=== PATIENT | female | born 1950 ===

== ENCOUNTER 2017-08-13 09:05 | Emergency (ER) | payer MEDICAID ==
[2017-08-13 09:06] VITALS: BMI 45.0
--- NOTE | 2017-08-13 10:02 | ED PDOC ---
HPI: General Adult Time Seen by Provider: 08/13/17 09:10 Chief Complaint (Nursing): Weakness/Neurological Deficit Chief Complaint (Provider): Weakness/Neurological Deficit History Per: Patient, Family History/Exam Limitations: no limitations Onset/Duration Of Symptoms: Days (x2) Current Symptoms Are (Timing): Still Present Additional Complaint(s): 67 year old female with medical history of hypercholesterolemia, presents to the emergency department with a complaint of right-sided facial weakness associated with 3 episodes of vomiting, nausea and blurry vision ongoing since last night. Patient was recently treated for bronchitis and left ear infection with Augmentin, Ciprodex and Prednisone. Denied any skin rash, fever or numbness of the upper/lower extremities. Patient noted vomiting and blurry vision resolved upon arrival to ED. PMD: Sol Frederick MD Past Medical History Reviewed: Historical Data, Nursing Documentation, Vital Signs Vital Signs: Last Vital Signs Temp 98.4 F 08/13/17 12:59 Pulse 66 08/13/17 12:59 Resp 18 08/13/17 12:59 BP 125/75 08/13/17 12:59 Pulse Ox 99 08/13/17 12:59 - Medical History PMH: Arthritis, Hypercholesterolemia, Chronic Kidney Disease - Surgical History Surgical History: Cholecystectomy - Family History Family History: States: Unknown Family Hx - Social History Current smoker - smoking cessation education provided: No Ex-Smoker (has not smoked in the last 12 months): No Alcohol: None Drugs: Denies - Home Medications Home Medications: Ambulatory Orders Medication Instructions Recorded Acetylcarnitine [Acetyl 500 mg DAILY 12/12/15 l-Carnitine] Alpha Lipoic Acid [Alpha Lipoic 200 mg DAILY 12/12/15 Acid] Bio-Curlumin 200 mg DAILY 12/12/15 Bone Meal/Vitamin D2 [Bone Meal 50,000 units PO ASDIR 12/12/15 214 mg-102 mg] Calcium Carb/Vitamin D3/Vit K1 1 tab DAILY 12/12/15 [Calcium + D Soft Chewable Tab] Ciprofloxacin [Cipro] 500 mg PO BID 12/12/15 Ibuprofen [Advil] 200 mg PO Q6 12/12/15 Magnesium Citrate 100 mg PO DAILY 12/12/15 Naproxen [Naprosyn] 500 mg DAILY 12/12/15 Omeprazole [Prilosec] 20 mg DAILY 12/12/15 Simvastatin [Zocor] 20 mg PO DAILY 12/12/15 - Allergies Allergies/Adverse Reactions: Allergies Allergy/AdvReac Type Severity Reaction Status Date / Time iodine Allergy ITCHING Verified 08/13/17 09:32 Review of Systems ROS Statement: Except As Marked, All Systems Reviewed And Found Negative Constitutional: Negative for: Fever Eyes: Positive for: Vision Change (blurry-resolved) ENT: Positive for: Ear Pain (left ear clog) Gastrointestinal: Positive for: Nausea, Vomiting (x3-resolved) Skin: Negative for: Rash Neurological: Positive for: Numbness (right-sided face) Physical Exam - Reviewed Nursing Documentation Reviewed: Yes Vital Signs Reviewed: Yes - Physical Exam Appears: Positive for: Well, Non-toxic, No Acute Distress Head Exam: Positive for: ATRAUMATIC, NORMAL INSPECTION, NORMOCEPHALIC Skin: Positive for: Normal Color, Warm, Dry Eye Exam: Positive for: Normal appearance ENT: Positive for: TM Is/Are (erythematous with fluid noted on left. Right TM is within normal limits). Negative for: Normal ENT Inspection, Other (Left TM infection/pus) Neck: Positive for: Painless ROM Cardiovascular/Chest: Positive for: Regular Rate, Rhythm, Chest Non Tender Respiratory: Positive for: Normal Breath Sounds. Negative for: Decreased Breath Sounds, Respiratory Distress Gastrointestinal/Abdominal: Positive for: Normal Exam, Soft. Negative for: Tenderness Extremity: Positive for: Normal ROM (upper/lower). Negative for: Other (upper/ lower weakess) Neurologic/Psych: Positive for: Alert, archeologist classical II-XII (intact), Oriented, Gait ( stable). Negative for: Motor/Sensory Deficits, Aphasia, Facial Droop - Laboratory Results Result Diagrams: 08/13/17 10:00 08/13/17 10:00 - ECG O2 Sat by Pulse Oximetry: 97 (RA) Pulse Ox Interpretation: Normal Medical Decision Making Medical Decision Making: Initial Impression: Right facial numbness - no other neurological findings Initial Plan: * CT head without contrast * CMP * CBC Time: 1024 --CT head FINDINGS: HEMORRHAGE: No intracranial hemorrhage. BRAIN: No mass effect or edema. No atrophy or chronic microvascular ischemic changes. VENTRICLES: Unremarkable. No hydrocephalus. CALVARIUM: Unremarkable. PARANASAL SINUSES: Unremarkable as visualized. No significant inflammatory changes. MASTOID AIR CELLS: Trace bilateral mastoid effusions. OTHER FINDINGS: None. IMPRESSION: No acute intracranial pathology. Time: 1242 --Upon provider reevaluation, patient is medically stable, feeling better with resolution of numbness and requires no further treatment in the ED at this time. labs reviewed. Provider explained thoroughly to patient's son and daughter, the importance of outpatient care with neurologist and ENT doctor. Patient will be discharged home. Counseling was provided and all questions were answered regarding diagnosis. There is agreement to discharge plan. Return if symptoms persist or worsen. pt dc home iwth family and recommended follow up in 1-2 days. Clinical Impression: Paresthesia Scribe Attestation: Documented by Lsia Landers, acting as a scribe for Stormy Stanley MD. Provider Scribe Attestation: All medical record entries made by the Scribe were at my direction and personally dictated by me. I have reviewed the chart and agree that the record accurately reflects my personal performance of the history, physical exam, medical decision making, and the department course for this patient. I have also personally directed, reviewed, and agree with the discharge instructions and disposition. Disposition - Clinical Impression Clinical Impression: History of paresthesia - Patient ED Disposition Is Patient to be Admitted: No Counseled Patient/Family Regarding: Studies Performed, Diagnosis, Need For Followup - Disposition Referrals: [facility] [Outside] [facility] [Outside] Ophelia Xiong MD [Medical Doctor] - Disposition: Routine/Home Disposition Time: 12:42 Condition: IMPROVED Additional Instructions: follow up with your primary doctor in 1-2 days as well as neurologist in 1-2 days (and with ENT as instructed) return to the ED with any worsening or concerning symptoms Instructions: Paresthesias (DC) Forms: [facility] (Guinean) Print Language: TRINIDADIAN
[2017-08-13 10:10] LABS: BASO # 0.1 K/uL (0.0-0.2); BASO % 0.9 % (0.0-2.0); EOS # 0.1 K/uL (0.0-0.7); EOS % 1.4 % (0.0-4.0); HEMOGLOBIN 11.8 g/dL (12.0-16.0); LYMPH # 2.5 K/uL (1.0-4.3); LYMPH % 33.1 % (20.0-40.0); MEAN CELL VOLUME 87.8 fl (81.0-99.0); MEAN PLATELET VOLUME 8.3 fl (7.2-11.7); MONO # 0.7 K/uL (0.0-0.8); MONO % 9.5 % (0.0-10.0); NEUT # 4.2 K/uL (1.8-7.0); NEUT % 55.1 % (50.0-75.0); RBC 4.08 Mil/uL (3.80-5.20); RED CELL DISTRIBUTION WIDTH 13.4 % (11.5-14.5); WHITE BLOOD COUNT 7.7 K/uL (4.8-10.8)
--- NOTE | 2017-08-13 10:26 | CT ---
PROCEDURE: CT HEAD WITHOUT CONTRAST. HISTORY: r sided facial numbness COMPARISON: None available. TECHNIQUE: Axial computed tomography images were obtained through the head/brain without intravenous contrast. Radiation dose: Total exam DLP = 844.6 mGy-cm. This CT exam was performed using one or more of the following dose reduction techniques: Automated exposure control, adjustment of the mA and/or kV according to patient size, and/or use of iterative reconstruction technique. FINDINGS: HEMORRHAGE: No intracranial hemorrhage. BRAIN: No mass effect or edema. No atrophy or chronic microvascular ischemic changes. VENTRICLES: Unremarkable. No hydrocephalus. CALVARIUM: Unremarkable. PARANASAL SINUSES: Unremarkable as visualized. No significant inflammatory changes. MASTOID AIR CELLS: Trace bilateral mastoid effusions. OTHER FINDINGS: None. IMPRESSION: No acute intracranial pathology.
[2017-08-13 10:27] LABS: ALBUMIN 3.8 g/dL (3.5-5.0); ALT/SGPT 51 U/L (9-52); AST/SGOT 33 U/L (14-36); BLOOD UREA NITROGEN 19 mg/dl (7-17); CALCIUM 9.4 mg/dL (8.4-10.2); GFR AFRICAN-AMERICAN > 60; GFR NON-AFRICAN AMERICAN > 60
[2017-08-13 12:30] VITALS: BP 125/75; PULSE 66; RESP 18
[2017-08-13 13:00] VITALS: TEMP 98.4
[2017-08-13 15:09] VITALS: O2SAT 97
== END 2017-08-13 12:59 | disposition home or self-care (01) ==
LOC: H.ER 09:05
DX: R20.2 Paresthesia of skin (principal); R53.1 Weakness; E78.00 Pure hypercholesterolemia, unspecified; R29.810 Facial weakness

== ENCOUNTER 2017-08-30 12:13 | Emergency (ER) | payer MEDICAID ==
[2017-08-30 12:13] VITALS: BMI 45.0
[2017-08-30 12:18] VITALS: RESP 20; O2SAT 98
--- NOTE | 2017-08-30 12:54 | ED PDOC ---
HPI: Abdomen Time Seen by Provider: 08/30/17 12:21 Chief Complaint (Nursing): Abdominal Pain Additional Complaint(s): 67yo F with PMHx HLD c/o abd pain. epigastric abd pain x2 days, started last night prior to bedtime, not able to fall asleep well last night 2/2 pain. pain 9 /10, pressure like, radiation at times to the back when sever, constant, a/w diarrhea x2 days with no BM today, imodium last night. Denies PMHx/FHx cardiac hx. Tolerating PO, a/w nausea. Denies fever, chills, vomiting, chest pain, SOB, dysuria. Sick contacts include 3 others with diarrhea at home. PCP Dr. Madrid Past Medical History Reviewed: Historical Data, Nursing Documentation, Vital Signs Vital Signs: Last Vital Signs Temp 97.9 F 08/30/17 12:15 Pulse 90 08/30/17 12:15 Resp 20 08/30/17 12:15 BP 147/76 08/30/17 12:15 Pulse Ox 98 08/30/17 13:54 - Medical History PMH: Arthritis, Hypercholesterolemia, Chronic Kidney Disease - Surgical History Surgical History: Cholecystectomy - Family History Family History: States: Unknown Family Hx - Home Medications Home Medications: Ambulatory Orders Medication Instructions Recorded Acetylcarnitine [Acetyl 500 mg DAILY 12/12/15 l-Carnitine] Alpha Lipoic Acid [Alpha Lipoic 200 mg DAILY 12/12/15 Acid] Bio-Curlumin 200 mg DAILY 12/12/15 Bone Meal/Vitamin D2 [Bone Meal 50,000 units PO ASDIR 12/12/15 214 mg-102 mg] Calcium Carb/Vitamin D3/Vit K1 1 tab DAILY 12/12/15 [Calcium + D Soft Chewable Tab] Ciprofloxacin [Cipro] 500 mg PO BID 12/12/15 Ibuprofen [Advil] 200 mg PO Q6 12/12/15 Magnesium Citrate 100 mg PO DAILY 12/12/15 Naproxen [Naprosyn] 500 mg DAILY 12/12/15 Omeprazole [Prilosec] 20 mg DAILY 12/12/15 Simvastatin [Zocor] 20 mg PO DAILY 12/12/15 Famotidine [Pepcid] 20 mg PO DAILY #14 tab 08/30/17 Ondansetron [Zofran] 4 mg PO Q8H PRN #6 tab 03/09/18 - Allergies Allergies/Adverse Reactions: Allergies Allergy/AdvReac Type Severity Reaction Status Date / Time iodine Allergy ITCHING Verified 08/30/17 12:15 Review of Systems ROS Statement: Except As Marked, All Systems Reviewed And Found Negative Review Of Systems: ROS cannot be obtained secondary to pt's inabilty to answer questions. Gastrointestinal: Positive for: Nausea, Abdominal Pain Physical Exam - Reviewed Nursing Documentation Reviewed: Yes Vital Signs Reviewed: Yes - Physical Exam Appears: Positive for: Well, Non-toxic Head Exam: Positive for: ATRAUMATIC, NORMAL INSPECTION Skin: Positive for: Warm, Dry Eye Exam: Positive for: Normal appearance Neck: Positive for: Normal, Painless ROM Cardiovascular/Chest: Positive for: Regular Rate, Rhythm. Negative for: Chest Non Tender Respiratory: Positive for: Normal Breath Sounds. Negative for: Decreased Breath Sounds Gastrointestinal/Abdominal: Positive for: Bowel Sounds, Soft, Tenderness ( epigastric). Negative for: Organomegaly, Mass, Guarding Back: Positive for: Normal Inspection. Negative for: L CVA Tenderness, R CVA Tenderness Lymphatic: Negative for: Adenopathy Neurologic/Psych: Positive for: Alert, Oriented - Laboratory Results Result Diagrams: 08/30/17 12:57 08/30/17 12:57 - ECG O2 Sat by Pulse Oximetry: 98 Medical Decision Making Medical Decision Makin DDx gastroenteritis, [place] pepcid 20 PO x1 zofran 4 PO x1 CBC, CMP, Troponin, lipase EKG reassessment 1353 Nausea and epigastric abd pain resolved no leukocytosis, neg trop, neg lipase EKG no ST elevation d/c home with zofran and pepcid FU PCP elevated LFTs Disposition - Clinical Impression Clinical Impression: Gastroenteritis - Disposition Referrals: Whit Andrew ARNP [Advanced RN Practitioner] - Disposition: Routine/Home Disposition Time: 13:54 Condition: IMPROVED Prescriptions: Famotidine [Pepcid] 20 mg PO DAILY #14 tab Ondansetron [Zofran] 4 mg PO Q8H PRN #6 tab PRN Reason: Nausea/Vomiting Instructions: Gastroenteritis (ED) Forms: [employer] (French)
[2017-08-30 13:33] LABS: BASO % 0.2 % (0.0-2.0); EOS % 0.3 % (0.0-4.0); HEMOGLOBIN 11.3 g/dL (12.0-16.0); LYMPH % 21.3 % (20.0-40.0); MEAN CORPUSCULAR HEMOGLOBIN 29.3 pg (27.0-31.0); MEAN CORPUSCULAR HGB CONC 32.5 g/dL (33.0-37.0); MEAN PLATELET VOLUME 9.2 fl (7.2-11.7); MONO # 0.6 K/uL (0.0-0.8); MONO % 11.3 % (0.0-10.0); NEUT # 3.3 K/uL (1.8-7.0); NEUT % 66.9 % (50.0-75.0); NRBC % 0.1 % (0.0-0.0); RBC 3.85 Mil/uL (3.80-5.20); WHITE BLOOD COUNT 4.9 K/uL (4.8-10.8)
[2017-08-30 13:39] LABS: ALBUMIN 3.5 g/dL (3.5-5.0); ALT/SGPT 69 U/L (9-52); AST/SGOT 126 U/L (14-36); BLOOD UREA NITROGEN 21 mg/dl (7-17); CALCIUM 8.8 mg/dL (8.4-10.2); GFR AFRICAN-AMERICAN > 60; GFR NON-AFRICAN AMERICAN > 60; LIPASE 168 U/L (23-300)
[2017-08-30 15:07] VITALS: BP 120/70; PULSE 74; TEMP 98
--- NOTE | 2017-08-31 12:20 | CARD ---
APPROVED REPORT EKG Measurement Heart [id number] CT [id number] <Conclusion> Normal sinus rhythm Nonspecific T wave abnormality Abnormal ECG
== END 2017-08-30 15:06 | disposition home or self-care (01) ==
LOC: H.ER 12:13
DX: K52.9 Noninfective gastroenteritis and colitis, unspecified (principal)